=== PATIENT | male | born 1995 | race Two or more races ===

== ENCOUNTER 2017-01-29 19:49 | Emergency (ER) | payer SELFPAY ==
[~2017-01-29] VITALS: Ht 172.7 cm; Wt 91.2 kg
[2017-01-29 19:55] VITALS: BP 144/83
== END 2017-01-29 20:46 | disposition home or self-care (01) ==
LOC: ED 20:26
DX: S62.662A Nondisplaced fracture of distal phalanx of right middle finger, initial encounter for closed fracture (principal); W23.0XXA Caught, crushed, jammed, or pinched between moving objects, initial encounter; Y93.89 Activity, other specified; Y99.0 Civilian activity done for income or pay; Y92.69 Other specified industrial and construction area as the place of occurrence of the external cause
CPT/HCPCS: 29130; 99284